=== PATIENT | male | born 1960 | race Caucasian/White ===

== ENCOUNTER 2022-02-01 15:58 | Observation (INO) ==
[2022-02-01] MEDS ORDERED: METOPROLOL TARTRATE 25 MG TABLET PO STA (16:31)
[2022-02-01] MEDS ORDERED: NITROGLYCERIN 2% OINT 1 INCH/GM PACK TOP STA (16:31)
[2022-02-01] MEDS ORDERED: ASPIRIN 325 MG TABLET PO STA (16:31)
[2022-02-01] MEDS ORDERED: lisinopriL 10 MG TABLET PO STA (16:31)
[2022-02-01 16:34] LABS: Basophils % 0.3 % (0.0-0.8); Eosinophils # 0.2 10*3/uL (0.0-0.87); Eosinophils % 2.5 % (0.00-10.9); Hematocrit 40.6 VOL% (42.0-52.0); Hemoglobin 14.6 GM/DL (14.0-18.0); Immature Granulocytes % 0.3 %; Immature Granulocytes Absolute 0.02 #; Lymphocytes # 1.6 10*3/uL (1.4-4.0); Lymphocytes % 22.7 % (21.2-54.2); Mean Corpuscular Volume 92.1 FL (87-102); Mean Platelet Volume 9.8 FL (9.6-12.0); Monocytes % 6.8 % (1.7-12.7); Neutrophils % 67.4 % (38.7-73.9); Platelet Count 164 T/CUMM (130-400); Red Blood Count 4.41 MC/CUMM (3.8-5.5); Red Cell Distribution Width 12.7 % (9.3-17.3); White Blood Count 6.9 T/CUMM (4-12)
[2022-02-01 16:58] LABS: Albumin 3.9 G/DL (3.4-5.0); Bilirubin,Total 0.7 MG/DL (0.20-1.00); Osmolality,Calculated 272.7 MOS/KG (273-304); Total Protein 7.3 G/DL (6.4-8.2)
[2022-02-01 17:21] LABS: Barbiturates Screen,Urine Negative (Negative); Benzodiazepines Screen,Urine Negative (Negative); Cannabinoid Screen,Urine Negative (Negative); Opiate Screen,Urine Negative (Negative); Phencyclidine Screen,Urine Negative (Negative)
[2022-02-01] MEDS ORDERED: LORazepam 2 MG/1 ML VIAL IV PRN (17:56)
[2022-02-01] MEDS ORDERED: ONDANSETRON 4 MG/2 ML VIAL IV PRN (17:56)
[2022-02-01] MEDS ORDERED: hydrALAZINE 20 MG/1 ML VIAL IV PRN (18:01)
[2022-02-01] MEDS: MELATONIN 3 MG TABLET PO SCH (21:14)
[2022-02-01] MEDS: ENOXAPARIN 40 MG/0.4 ML SYRINGE SUBCUT SCH (21:15)
[2022-02-02] MEDS: NITROGLYCERIN 2% OINT 1 INCH/GM PACK TOP SCH ×2 (02:09→05:29)
[2022-02-02] MEDS: MORPHINE 2 MG/1 ML SYRINGE IV PRN ×3 (03:34→19:35)
[2022-02-02 05:01] LABS: Basophils % 0.6 % (0.0-0.8); Eosinophils # 0.2 10*3/uL (0.0-0.87); Hematocrit 39.9 VOL% (42.0-52.0); Immature Granulocytes % 0.3 %; Immature Granulocytes Absolute 0.02 #; Lymphocytes # 2.2 10*3/uL (1.4-4.0); Lymphocytes % 31.4 % (21.2-54.2); Mean Corpuscular HGB Conc 35.1 GM/DL (32-36); Mean Corpuscular Volume 92.8 FL (87-102); Mean Platelet Volume 10.6 FL (9.6-12.0); Monocytes % 6.8 % (1.7-12.7); Neutrophils % 57.9 % (38.7-73.9); Platelet Count 152 T/CUMM (130-400); Red Cell Distribution Width 12.9 % (9.3-17.3)
[2022-02-02 05:24] LABS: Albumin 3.3 G/DL (3.4-5.0); Bilirubin,Total 0.8 MG/DL (0.20-1.00); Calcium 8.7 MG/DL (8.5-10.1); Osmolality,Calculated 275.5 MOS/KG (273-304); Potassium 3.4 MMOL/L (3.5-5.1); Total Protein 6.6 G/DL (6.4-8.2)
[2022-02-02] MEDS: lisinopriL 20 MG TABLET PO SCH (09:02)
[2022-02-02] MEDS: hydroCHLOROthiazide 25 MG TABLET PO SCH (09:02)
[2022-02-02] MEDS: PANTOPRAZOLE 40 MG TABLET PO SCH (09:02)
[2022-02-02] MEDS: DOCUSATE SODIUM 100 MG CAPSULE PO SCH (09:03)
[2022-02-02] MEDS: MULTIVITAMIN (CENTRUM) TABLET PO SCH (09:03)
[2022-02-02] MEDS: FOLIC ACID 1 MG TABLET PO SCH (09:03)
[2022-02-02] MEDS: THIAMINE 100 MG TABLET PO SCH (09:03)
[2022-02-02] MEDS ORDERED: KETOROLAC 30 MG/1 ML VIAL IV ONE (09:32)
[2022-02-02] MEDS ORDERED: ALUM/MAG/SIMETH/LIDO VISC 1:1 30 ML BOTTLE PO ONE (09:54)
[2022-02-02] MEDS ORDERED: ALBUTEROL/IPRATROPIUM 3 ML NEB RESP TX ONE (10:41)
[2022-02-02] MEDS: ROSUVASTATIN 20 MG TABLET PO SCH (11:23)
[2022-02-02] MEDS: ASPIRIN EC 81 MG TABLET PO SCH (11:23)
[2022-02-02] MEDS ORDERED: POLYETHYLENE GLYCOL POWDER 17 GM PACK PO PRN (13:30)
[2022-02-02] MEDS: MELATONIN 3 MG TABLET PO SCH (21:02)
[2022-02-02] MEDS: traZODone 50 MG TABLET PO SCH (21:02)
[2022-02-02] MEDS: ENOXAPARIN 40 MG/0.4 ML SYRINGE SUBCUT SCH (21:03)
[2022-02-03] MEDS: MORPHINE 2 MG/1 ML SYRINGE IV PRN ×2 (04:19→11:10)
[2022-02-03] MEDS: hydroCHLOROthiazide 25 MG TABLET PO SCH (09:49)
[2022-02-03] MEDS: ASPIRIN EC 81 MG TABLET PO SCH (09:49)
[2022-02-03] MEDS: lisinopriL 20 MG TABLET PO SCH (09:49)
[2022-02-03] MEDS ORDERED: MAGNESIUM SULF RIDER 2 GM/50 ML PREMIX IV PRN (13:51)
[2022-02-03] MEDS ORDERED: SODIUM CHLORIDE 0.45% 1,000 ML IV SCH (14:00)
[2022-02-03] MEDS ORDERED: HEPARIN/NACL 0.9% 2 UNITS/ML 3,000 UNIT/1,500 ML BAG IV ONE (14:04)
[2022-02-03] MEDS ORDERED: fentaNYL 100 MCG/2 ML VIAL ONE (14:43)
[2022-02-03] MEDS ORDERED: VERAPAMIL 5 MG/2 ML VIAL ONE (14:43)
[2022-02-03] MEDS ORDERED: MIDAZOLAM 2 MG/2 ML VIAL ONE ×2 (14:43→14:59)
[2022-02-03] MEDS ORDERED: NITROGLYCERIN DRIP 50 MG/250 ML BOTTLE IV ONE (14:43)
[2022-02-03] MEDS ORDERED: HEPARIN 5,000 UNIT/1 ML VIAL ONE (14:49)
[2022-02-03] MEDS: DOCUSATE SODIUM 100 MG CAPSULE PO SCH (15:47)
[2022-02-03] MEDS: MULTIVITAMIN (CENTRUM) TABLET PO SCH (15:47)
[2022-02-03] MEDS: ROSUVASTATIN 20 MG TABLET PO SCH (15:47)
[2022-02-03] MEDS: THIAMINE 100 MG TABLET PO SCH (15:47)
[2022-02-03] MEDS: PANTOPRAZOLE 40 MG TABLET PO SCH (15:47)
[2022-02-03] MEDS: FOLIC ACID 1 MG TABLET PO SCH (15:47)
[2022-02-03] MEDS: ENOXAPARIN 40 MG/0.4 ML SYRINGE SUBCUT SCH (20:25)
[2022-02-03] MEDS: traZODone 50 MG TABLET PO SCH (20:25)
[2022-02-03] MEDS: MELATONIN 3 MG TABLET PO SCH (20:25)
[2022-02-03] MEDS: ACETAMINOPHEN 325 MG TABLET PO PRN (22:40)
[2022-02-04 05:20] LABS: Basophils % 0.4 % (0.0-0.8); Eosinophils # 0.2 10*3/uL (0.0-0.87); Eosinophils % 1.8 % (0.00-10.9); Hematocrit 38.9 VOL% (42.0-52.0); Hemoglobin 13.5 GM/DL (14.0-18.0); Immature Granulocytes % 0.4 %; Immature Granulocytes Absolute 0.04 #; Lymphocytes # 1.5 10*3/uL (1.4-4.0); Lymphocytes % 16.2 % (21.2-54.2); Mean Corpuscular HGB Conc 34.7 GM/DL (32-36); Mean Corpuscular Volume 94.6 FL (87-102); Mean Platelet Volume 10.3 FL (9.6-12.0); Monocytes % 6.5 % (1.7-12.7); Neutrophils % 74.7 % (38.7-73.9); Platelet Count 145 T/CUMM (130-400); Red Blood Count 4.11 MC/CUMM (3.8-5.5); Red Cell Distribution Width 12.8 % (9.3-17.3); White Blood Count 9.3 T/CUMM (4-12)
[2022-02-04 05:34] LABS: Calcium 8.6 MG/DL (8.5-10.1); Osmolality,Calculated 275.8 MOS/KG (273-304); Potassium 4.3 MMOL/L (3.5-5.1)
[2022-02-04] MEDS: ROSUVASTATIN 20 MG TABLET PO SCH (10:01)
[2022-02-04] MEDS: PANTOPRAZOLE 40 MG TABLET PO SCH (10:01)
[2022-02-04] MEDS: FOLIC ACID 1 MG TABLET PO SCH (10:01)
[2022-02-04] MEDS: ASPIRIN EC 81 MG TABLET PO SCH (10:01)
[2022-02-04] MEDS: MULTIVITAMIN (CENTRUM) TABLET PO SCH (10:01)
[2022-02-04] MEDS: lisinopriL 20 MG TABLET PO SCH (10:02)
[2022-02-04] MEDS: hydroCHLOROthiazide 25 MG TABLET PO SCH (10:02)
[2022-02-04] MEDS: THIAMINE 100 MG TABLET PO SCH (10:02)
[2022-02-04] MEDS: DOCUSATE SODIUM 100 MG CAPSULE PO SCH (10:02)
[2022-02-04] MEDS: ACETAMINOPHEN 325 MG TABLET PO PRN ×2 (10:05→18:05)
[2022-02-04] MEDS: MELATONIN 3 MG TABLET PO SCH (20:30)
[2022-02-04] MEDS: ENOXAPARIN 40 MG/0.4 ML SYRINGE SUBCUT SCH (20:30)
[2022-02-04] MEDS: traZODone 50 MG TABLET PO SCH (20:30)
[2022-02-05 07:48] VITALS: BP 100/62
[2022-02-05] MEDS: hydroCHLOROthiazide 25 MG TABLET PO SCH (09:29)
[2022-02-05] MEDS: THIAMINE 100 MG TABLET PO SCH (09:29)
[2022-02-05] MEDS: MULTIVITAMIN (CENTRUM) TABLET PO SCH (09:29)
[2022-02-05] MEDS: lisinopriL 20 MG TABLET PO SCH ×2 (09:29→09:34)
[2022-02-05] MEDS: ASPIRIN EC 81 MG TABLET PO SCH (09:29)
[2022-02-05] MEDS: DOCUSATE SODIUM 100 MG CAPSULE PO SCH (09:29)
[2022-02-05] MEDS: FOLIC ACID 1 MG TABLET PO SCH (09:29)
[2022-02-05] MEDS: ROSUVASTATIN 20 MG TABLET PO SCH (09:29)
[2022-02-05] MEDS: PANTOPRAZOLE 40 MG TABLET PO SCH (09:29)
== END 2022-02-05 11:45 | disposition home or self-care (01) ==
LOC: N.TELES 15:58 → N.ED 15:58 → SUATTDRO 17:56 → N.TELES 21:31
PROVIDERS: ADMIT Internal Medicine; ATTEND Phlebology
PROC: CLCCHCL (ICD-10-PCS; 2022-02-03 14:45)